=== PATIENT | male | born 1955 | race Caucasian/White ===

== ENCOUNTER 2020-06-06 20:02 | Inpatient (IN) | payer MEDICARE, MEDICAID, SELFPAY ==
[2020-06-06 20:05] VITALS: BP 150/92; PULSE 62; RESP 16; TEMP 36.4; O2SAT 96
--- NOTE | 2020-06-06 20:30 | ED.ABDPAIN ---
HPI - Abdominal Pain General Chief Complaint: Abdominal Pain Stated Complaint: AMB Time Seen by Provider: 06/06/20 20:31 Source: patient, EMS and RN notes reviewed Mode of arrival: EMS Limitations: intoxication History of Present Illness MD elicited complaint: abdominal pain Onset (ago): year(s)
--- NOTE | 2020-06-06 20:45 | ED.GENADULT ---
HPI - General Adult General Chief complaint: Abdominal Pain Stated complaint: AMB Time Seen by Provider: 06/06/20 20:31 Source: patient, EMS and RN notes reviewed Mode of arrival: ambulatory Limitations: no limitations History of Present Illness HPI narrative: patient presents after calling ambulance because he is severely depressed. Said his girlfriend/partner of 20 years in February. 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 The CT . He has been drinking all day. He has a history of alcoholism. He complains about his abdominal pain that he has had for years. Patient states he has seen multiple doctors for his abdominal pain and had multiple tests done. They have never found any answer. He says he is here tonight because he is severely depressed. He denies being suicidal. MD complaint: depression Related Data Home Medications Medication Instructions Recorded Confirmed amlodipine 10 mg PO DAILY 06/06/20 06/06/20 fluoxetine 20 mg PO DAILY 06/06/20 06/06/20 lisinopril 40 mg PO DAILY 06/06/20 06/06/20 lorazepam 1 mg PO BID PRN 06/06/20 06/06/20 omeprazole 20 mg PO DAILY 06/06/20 06/06/20 tamsulosin 0.4 mg PO DAILY 06/06/20 06/06/20 Allergies Allergy/AdvReac Type Severity Reaction Status Date / Time No Known Allergies Allergy Verified 06/06/20 20:41 Review of Systems Constitutional: Constitutional: Reports no additional constitutional complaints, Denies chills and Denies fever(s) Eyes: Eyes: Reports no additional eye complaints ENT: Reports system reviewed and no additional complaints, except as documented Cardiovascular: Cardiovascular: Reports no additional cardiovascular complaints Respiratory: Respiratory: Reports no additional respiratory complaints Gastrointestinal: Gastrointestinal: Reports abdominal pain (Not new), Denies constipation, Denies diarrhea, Denies nausea and Denies vomiting Genitourinary: Genitourinary: Reports no additional male genitourinary complaints Musculoskeletal: Musculoskeletal: Reports no additional musculoskeletal complaints Integumentary/Breasts: Skin/Breast: Reports system reviewed and no additional complaints, except as docu Neurologic: Reports system reviewed and no additional complaints, except as documented Psychiatric: Psychiatric: Reports depression, Denies homicidal ideation and Denies suicidal ideation Endocrine: Endocrine: Reports no additional endocrine complaints Hematologic/Lymphatic: Hematologic/Lymphatic: Reports no additional hematologic/lymphatic complaints PMFSH Past Medical History Medical History (Updated 06/06/20 @ 22:28 by Tommy Paulino MD) Alcoholism BPH (benign prostatic hyperplasia) Depression GERD (gastroesophageal reflux disease) Hepatitis C Hypertension Social History Social History Smoking packs per day: 1 Smoking cigarettes per day: 20.0 Smoking status: Current every day smoker Tobacco type: cigarettes Alcohol intake: current Substance use: never Exam Const: General: healthy appearing and no acute distress Nutritional Appearance: well nourished and thin Orientation/consciousness: patient oriented x3 HENMT: Head: normal to inspection Ears: external ears normal Face and sinus: normal facial exam Eyes: Conjunctivae: conjunctivae normal Pupils: Equal, round and reactive pupils present EOM: EOMs intact bilaterally Neck: Neck: normal visual inspection Chest: Chest palpation & inspection: normal inspection of the chest and abnormal inspection of the chest Resp: Effort & Inspection: normal respiratory effort Auscultation: clear to auscultation bilaterally Cardio: Rate: regular rate Rhythm: regular rhythm GI: GI Palp: Yes Soft to palpation, No Tenderness to palpation present (GI), No Guarding due to palpation present (GI), No Rigid due to palpation and No Rebound tenderness present Auscultation: normal bowel sounds Back/Spine/
[2020-06-06 21:01] LABS: Basophils Absolute Auto 0.08 K/mm3 (0.00-0.10); Eosinophils Absolute Auto 0.16 K/mm3 (0.02-0.50); Eosinophils Percent Auto 1.9 % (1.0-6.0); Hematocrit 34.3 % (37.0-46.0); Hemoglobin 12.6 g/dL (12.4-15.3); Immature Granulocyte Absolute 0.05 K/mm3 (0.00-0.00); Immature Granulocyte Percent A 0.6 % (0.0-0.0); Lymphocytes Absolute Auto 2.22 K/mm3 (1.10-4.50); Lymphocytes Percent Auto 26.5 % (18.0-42.0); Mean Corpuscular HGB Conc 36.7 g/dL (32.0-36.0); Mean Corpuscular Volume 95.3 fL (78.0-102.0); Mean Platelet Volume 8.9 fl (8.7-11.0); Monocytes Absolute Auto 0.87 K/mm3 (0.10-0.90); Monocytes Percent Auto 10.4 % (2.0-11.0); Neutrophils Percent Auto 59.6 % (50.0-70.0); Platelet Count Result 252 K/mm3 (150-420); Red Cell Distribution Width 11.4 % (11.6-14.4); White Blood Count 8.4 K/mm3 (4.8-10.8)
[2020-06-06 21:26] LABS: Alanine Aminotransferase 26 U/L (16-63); Albumin Level 3.4 g/dL (3.4-5.0); Alkaline Phosphatase 39 U/L (46-116); Anion Gap 12 mmol/L (8-16); Aspartate Amino Transferase 25 U/L (15-37); Bilirubin,Total 0.3 mg/dL (0.00-1.00); Blood Urea Nitrogen 6 mg/dL (7-18); Calcium 8.1 mg/dL (8.5-10.1); Carbon Dioxide 22 mmol/L (21-32); Chloride 84 mmol/L (98-108); Estimated Glomerular Filt Rate > 60; Glucose 95 mg/dL (70-99); Lipase 240 U/L (73-393); Osmolality Calculated 243 mOsm/kg (285-295); Potassium 3.2 mmol/L (3.5-5.1); Total Protein 6.3 g/dL (6.4-8.2)
[2020-06-06 21:30] LABS: Ethanol 233 mg/dL (0-6); Sodium 118 mmol/L (136-145)
[2020-06-06 21:31] LABS: CRP < 0.5 mg/dL (0.0-0.9)
[2020-06-06 21:31] LABS: Acetaminophen 10 ug/mL (10-30); Salicylate 4.7 mg/dL (2.8-20.0); Thyroid Stimulating Hormone 1.14 uIU/mL (0.36-3.74)
[2020-06-06] MEDS: PANTOPRAZOLE SODIUM IV 40 MG VIAL IV PUSH (21:43)
[2020-06-06 21:45] LABS: Add Urine Microscopic? NO; Appearance Urine Clear (Clear); Bilirubin Urine Negative (Negative); Blood Urine Negative (Negative); Color Urine Yellow (Yellow); Glucose Urine UA Negative (Negative); Ketones Urine Negative (Negative); Leukocyte Esterase Ur Negative LEU/UL (Negative); Nitrate Urine Negative (Negative); Protein Urine Negative (Negative); Specific Grav Ur <= 1.005 (1.010-1.020); Urobilinogen Urine 0.2 mg/dL (0.2-1.0)
[2020-06-06 21:54] LABS: Amphetamine Screen Urine Negative (Negative); Barbiturate Screen Urine Negative (Negative); Benzodiazepines Screen Urine Negative (Negative); Cannabinoid Screen Urine Negative (Negative); Cocaine Screen Urine Negative (Negative); Methadone Screen Urine Negative (Negative); Opiate Screen Urine Negative (Negative); Phencyclidine Screen Urine Negative (Negative)
[2020-06-06] MEDS: chlordiazePOXIDE (*CRX) 25 MG CAPSULE PO (22:21)
[2020-06-06 22:43] VITALS: BP 134/79; PULSE 60; RESP 16; O2SAT 95
[2020-06-06 22:50] LABS: Ammonia 11 umol/L (11-32)
[2020-06-06 23:00] VITALS: BP 124/70; PULSE 58; RESP 18; TEMP 36; O2SAT 93
--- NOTE | 2020-06-06 23:15 | ADMGEN ---
This patient, Lai An, was admitted to 2nd Floor Room 206-1. Patient oriented to hospital policies and general routines including ID bracelet, bed and alarms, visiting hours, pain management, procedures, bathroom and other care routines, personal items, smoking policy, room service/diet, and visiting hours. Information on how to activate the Rapid Response Team has been discussed. Patient are encouraged to report perceived risks to care and to ask questions if they do not understand what they are told or what they should do. Patient's valuables list completed. Patient arrived to room with NS infusing to site in LAC without difficulty. Patient ambulated to/from bathroom with one assist with unsteady gait. Call light in reach.
[2020-06-07] VITALS: BP 132/68; PULSE 60; RESP 18; TEMP 36.1; O2SAT 94
[2020-06-07 00:54] VITALS: BMI 25.3
[2020-06-07 05:48] LABS: Basophils Percent Auto 1.6 % (0.0-1.0); Eosinophils Absolute Auto 0.19 K/mm3 (0.02-0.50); Eosinophils Percent Auto 3.1 % (1.0-6.0); Hematocrit 37.1 % (37.0-46.0); Hemoglobin 13.5 g/dL (12.4-15.3); Immature Granulocyte Absolute 0.03 K/mm3 (0.00-0.00); Immature Granulocyte Percent A 0.5 % (0.0-0.0); Lymphocytes Absolute Auto 1.66 K/mm3 (1.10-4.50); Lymphocytes Percent Auto 27.3 % (18.0-42.0); Mean Corpuscular HGB Conc 36.4 g/dL (32.0-36.0); Mean Corpuscular Volume 96.1 fL (78.0-102.0); Mean Platelet Volume 8.8 fl (8.7-11.0); Monocytes Absolute Auto 0.68 K/mm3 (0.10-0.90); Monocytes Percent Auto 11.2 % (2.0-11.0); Neutrophils Absolute Auto 3.4 K/mm3 (1.7-7.2); Neutrophils Percent Auto 56.3 % (50.0-70.0); Platelet Count Result 261 K/mm3 (150-420); Red Blood Count 3.86 M/mm3 (4.70-6.10); Red Cell Distribution Width 11.6 % (11.6-14.4); White Blood Count 6.1 K/mm3 (4.8-10.8)
[2020-06-07 06:05] LABS: Anion Gap 10 mmol/L (8-16); Blood Urea Nitrogen 5 mg/dL (7-18); Carbon Dioxide 25 mmol/L (21-32); Chloride 97 mmol/L (98-108); Estimated CRCL calculation 118 ml/min; Estimated Glomerular Filt Rate > 60; Glucose 87 mg/dL (70-99); Osmolality Calculated 270 mOsm/kg (285-295); Potassium 3.6 mmol/L (3.5-5.1); Sodium 132 mmol/L (136-145)
[2020-06-07 06:06] LABS: Ammonia < 10 umol/L (11-32)
[2020-06-07] MEDS: SODIUM CHLORIDE 0.9% IV 1,000 ML 150 ML IV CONT ×2 (06:11)
[2020-06-07 08:00] VITALS: BP 128/72; PULSE 72; RESP 18; TEMP 37.1; O2SAT 96
[2020-06-07] MEDS: amLODIPine BESYLATE 5 MG TABLET 10 MG PO (08:56)
[2020-06-07] MEDS: TAMSULOSIN HCL 0.4 MG CAPSULE PO (08:57)
[2020-06-07] MEDS: lisinopriL 20 MG TABLET 40 MG PO (08:57)
[2020-06-07] MEDS: FLUoxetine HCL 10 MG CAPSULE 20 MG PO (08:57)
[2020-06-07] MEDS: PANTOPRAZOLE 40 MG TABLET PO (08:57)
[2020-06-07] MEDS: LORazepam (*CRX) 1 MG TABLET PO ×2 (09:43→19:59)
[2020-06-07] MEDS: traMADol HCL (*CRX) 50 MG TABLET PO (09:43)
--- NOTE | 2020-06-07 11:14 | PM.IMHP ---
H&P: HPI History of Present Illness Date/Time: 06/07/20 11:14 spoke with patient this morning and according to nursing staff was a little on edge / upset likely from ETOH withdrawal. Patient stated that he wanted his Ativan and tramadol ordered this morning which he takes for anxiety related to alcohol withdrawal and tramadol for chronic back pain. Patient is hard of hearing but was able to understand plan of care regarding his electrolyte imbalance, EtOH use, in case management who discussed outpatient counseling for his EtOH use. Chief complaint: HYPONATREMIA ALCOHOLISM DEPRESSION Narrative: Lai An is a 65 year old male Review of Systems Constitutional: Comments: as per subjective above Cardiovascular: Cardiovascular: Reports no additional cardiovascular complaints, Denies chest pain, Denies chest pain at rest and Denies chest pain with activity Respiratory: Respiratory: Reports no additional respiratory complaints, Denies dyspnea and Denies dyspnea on exertion Gastrointestinal: Gastrointestinal: Reports no additional gastrointestinal complaints Musculoskeletal: Musculoskeletal: Reports no additional musculoskeletal complaints Psychiatric: Psychiatric: Reports no additional psychiatric complaints PMFSH Past Medical History Medical History Alcoholism BPH (benign prostatic hyperplasia) Depression GERD (gastroesophageal reflux disease) Hepatitis C Hypertension Social History Social History Smoking packs per day: 1 Smoking cigarettes per day: 20.0 Years smoked: 50 Smoking pack-years: 50.00 Smoking status: Current every day smoker Tobacco type: cigarettes Second hand tobacco smoke exposure: No Alcohol intake: current Substance use: unknown Gender identity (if verbalized by the patient): Male Sexual Orientation (if Verbalized by the Patient): Straight or Heterosexual Spiritual care concerns: No Meds Home Medications and Allergies Home Medications Medication Instructions Recorded Confirmed Type amlodipine 10 mg PO DAILY 06/06/20 06/06/20 History fluoxetine 20 mg PO DAILY 06/06/20 06/06/20 History lisinopril 40 mg PO DAILY 06/06/20 06/06/20 History lorazepam 1 mg PO BID PRN 06/06/20 06/06/20 History omeprazole 20 mg PO DAILY 06/06/20 06/06/20 History tamsulosin 0.4 mg PO DAILY 06/06/20 06/06/20 History Allergies Allergy/AdvReac Type Severity Reaction Status Date / Time No Known Allergies Allergy Verified 06/06/20 20:41 Vital Signs Vital Signs - 24 hr 06/06/20 20:05 06/06/20 22:43 06/06/20 23:00 Temperature 97.6 F 96.8 F L Pulse Rate 62 60 58 L Respiratory Rate 16 16 18 Blood Pressure 150/92 H 134/79 124/70 Pulse Oximetry 96 95 93 06/07/20 00:00 Temperature 97.0 F L Pulse Rate 60 Respiratory Rate 18 Blood Pressure 132/68 Pulse Oximetry 94 Exam Narrative: Exam Narrative: patient says he is willing to go to outpatient than alcohol counseling Const: General: cooperative and other (a little short at times possibly EtOH withdrawal and/or [place]) Nutritional Appearance: average body habitus Orientation/consciousness: oriented to person, oriented to place and oriented to time Resp: Effort & Inspection: normal respiratory effort Auscultation: clear to auscultation bilaterally Cardio: Rate: regular rate Rhythm: regular rhythm Heart sounds: S1 normal heart sound present and S2 normal heart sound present GI: GI Palp: Yes Soft to palpation Auscultation: normal bowel sounds Neuro: General: oriented to person, oriented to place and oriented to time Cranial nerves: Yes CN's II-XII intact bilaterally (grossly intact little hard of hearing) Speech: normal speech Extrem: General: no pedal edema Psych: Affect: Irritable affect present Attitude: cooperative H&P: Results Labs Labs: Short CBC 06/06/20 06/07/20 Range/Units 20:55 05:43 W
[2020-06-07] MEDS: SODIUM CHLORIDE 0.9% IV 1,000 ML 75 ML IV CONT (12:31)
--- NOTE | 2020-06-07 12:36 | PC.NURSE ---
SBA up from chair and ambulated to bed, fluids infusing now at 75ml an hour, ate well for lunch
--- NOTE | 2020-06-07 15:06 | PC.NURSE ---
1447 changed to ip at this time. aracelis rn
[2020-06-07 16:00] VITALS: PULSE 79; RESP 18; TEMP 36.9; O2SAT 96
[2020-06-07 23:01] VITALS: BP 133/70; PULSE 68; RESP 18; TEMP 36.6; O2SAT 94
[2020-06-08] MEDS: SODIUM CHLORIDE 0.9% IV 1,000 ML 75 ML IV CONT (02:40)
[2020-06-08 05:33] LABS: Hematocrit 34.4 % (37.0-46.0); Hemoglobin 12.2 g/dL (12.4-15.3); Mean Corpuscular HGB Conc 35.5 g/dL (32.0-36.0); Mean Corpuscular Hemoglobin 34.5 pg (27.0-31.0); Mean Corpuscular Volume 97.2 fL (78.0-102.0); Mean Platelet Volume 9.2 fl (8.7-11.0); Platelet Count Result 248 K/mm3 (150-420); Red Blood Count 3.54 M/mm3 (4.70-6.10); Red Cell Distribution Width 11.9 % (11.6-14.4); White Blood Count 8.6 K/mm3 (4.8-10.8)
[2020-06-08 05:44] LABS: Anion Gap 9 mmol/L (8-16); Blood Urea Nitrogen 6 mg/dL (7-18); Calcium 8.3 mg/dL (8.5-10.1); Carbon Dioxide 25 mmol/L (21-32); Chloride 97 mmol/L (98-108); Estimated CRCL calculation 120 ml/min; Estimated Glomerular Filt Rate > 60; Glucose 95 mg/dL (70-99); Magnesium 1.2 mg/dL (1.8-2.4); Osmolality Calculated 269 mOsm/kg (285-295); Potassium 3.3 mmol/L (3.5-5.1); Sodium 131 mmol/L (136-145)
[2020-06-08 08:00] VITALS: BP 155/80; PULSE 70; RESP 16; TEMP 36.6; O2SAT 95
[2020-06-08] MEDS: FLUoxetine HCL 10 MG CAPSULE 20 MG PO (08:21)
[2020-06-08] MEDS: lisinopriL 20 MG TABLET 40 MG PO (08:21)
[2020-06-08] MEDS: amLODIPine BESYLATE 5 MG TABLET 10 MG PO (08:21)
[2020-06-08] MEDS: POTASSIUM CHLORIDE 20 MEQ TABLET 40 MEQ PO (08:21)
[2020-06-08] MEDS: PANTOPRAZOLE 40 MG TABLET PO (08:22)
[2020-06-08] MEDS: TAMSULOSIN HCL 0.4 MG CAPSULE PO (08:22)
[2020-06-08] MEDS: MAGNESIUM SULF 4 GM/WATER100ML 4 GM/100 ML BAG IVPB (08:22)
[2020-06-08 11:28] LABS: Anion Gap 7 mmol/L (8-16); Blood Urea Nitrogen 5 mg/dL (7-18); Calcium 8.6 mg/dL (8.5-10.1); Carbon Dioxide 27 mmol/L (21-32); Chloride 95 mmol/L (98-108); Estimated CRCL calculation 102 ml/min; Estimated Glomerular Filt Rate > 60; Glucose 117 mg/dL (70-99); Magnesium 2.2 mg/dL (1.8-2.4); Osmolality Calculated 266 mOsm/kg (285-295); Potassium 3.8 mmol/L (3.5-5.1); Sodium 129 mmol/L (136-145)
--- NOTE | 2020-06-08 13:17 | PM.DS ---
DS: Admitting Diagnosis Admitting Diagnosis Admitting Diagnosis: HYPONATREMIA ALCOHOLISM DEPRESSION DS: Discharge Diagnosis Discharge Diagnosis (1) Acute hyponatremia: Code(s): E87.1 - Hypo-osmolality and hyponatremia Status: Acute Assessment and Plan: 06/07/2020 patient was started on normal saline 150 per hour and shows shortage, should continue at 75 per hours and recheck chemistry in the morning 06/08/2020 electrolytes have fluctuated but improved, will be discharging patient on 1 g sodium chloride tablets twice a day, also with Mag oxide, and potassium tablets, patient will be needing a close follow-up with his primary care provider, discussed with patient the need to decrease alcohol intake (2) Depression: Qualifiers: Active/Remission status: currently active Depression Type: major depressive disorder Major depression episode severity: severe Major depression recurrence: recurrent Psychotic features: without psychotic features Qualified Code(s): F33.2 - Major depressive disorder, recurrent severe without psychotic features Code(s): F32.9 - Major depressive disorder, single episode, unspecified Status: Acute Assessment and Plan: 06/07/2020 continue fluoxetine, patient agrees to outpatient counseling for his depression and EtOH use 06/08/2020 continue home medication on discharge, patient still plans to do outpatient counseling for his depression but at this time he has decided not to seek counseling for his alcohol use (3) Hypertension: Code(s): I10 - Essential (primary) hypertension Status: Acute Assessment and Plan: 06/07/2020 vital signs stable, room air SpO2 93% or better, will continue to monitor and make adjustments in medication as needed 06/08/2020 vital signs stable, patient on room air, SpO2 94% or better, no adjustments needed to be made on his home medication (4) GERD (gastroesophageal reflux disease): Code(s): K21.9 - Gastro-esophageal reflux disease without esophagitis Status: Acute Assessment and Plan: 06/07/2020 patient takes omeprazole at home medication, Protonix was started and upon admit last night 06/08/2020 will continue his home medication on discharge (5) Alcoholism: Code(s): F10.20 - Alcohol dependence, uncomplicated Status: Acute Assessment and Plan: 06/07/2020 patient appears over this morning, patient agrees to do outpatient counseling, discussed long-term effects of alcohol abuse 06/08/2020 patient was given paperwork for outpatient counseling yesterday he was amicable this today he says he will only go for counseling for his depression. DS: Summary Time Spent with Patient Time attestation: Total time spent providing and/or coordinating discharge services: < [address] Segal this patient. Dr. Seagl was requesting a chest x-ray however patient is refusing at this time. Exam Const: General: cooperative, comfortable, no acute distress, alert, awake and Physically active Nutritional Appearance: average body habitus Eyes: General: appearance normal, both eyes and all related structures Pupils: Equal, round and reactive pupils present Resp: Effort & Inspection: normal respiratory effort Auscultation: clear to auscultation bilaterally Cardio: Jugular venous distension: no JVD Rate: regular rate Rhythm: regular rhythm Heart sounds: S1 normal heart sound present and S2 normal heart sound present GI: GI Palp: Yes Soft to palpation Auscultation: normal bowel sounds Neuro: General: oriented to person, oriented to place and oriented to time Cranial nerves: Yes CN's II-XII intact bilaterally (Grossly intact) Cognition (Neuro): normal cognition Speech: normal speech Extrem: General: full ROM, no pedal edema and other (ambulates without assistance) Psych: Speech and movement: Normal speech and movement present (patient is hard of hearing) Affect: normal affect
--- NOTE | 2020-06-10 14:15 | PC.NURSE ---
Unable to contact for discharge call back.
== END 2020-06-08 13:55 | disposition home or self-care (01) | DRG 641 ==
LOC: CHSED 22:28 → CHS2ND 22:35
PROVIDERS: Nurse Practitioner Family; Admitting Provider Emergency Medicine; Emergency Provider Emergency Medicine; PCP Family Medicine; Visit Provider Emergency Medicine
DX: E87.1 Hypo-osmolality and hyponatremia (principal); F10.20 Alcohol dependence, uncomplicated; B19.20 Unspecified viral hepatitis C without hepatic coma; I10 Essential (primary) hypertension; K21.9 Gastro-esophageal reflux disease without esophagitis; N40.0 Benign prostatic hyperplasia without lower urinary tract symptoms; F32.9 Major depressive disorder, single episode, unspecified
CPT/HCPCS: 36415; 80048; 80053; 80307; 81003; 82140; 83690; 83735; 84443; 85025; 85027; 86140; 96361; 96374; 99284; 99285; A9270; C9113; G0378; J3475; J7030

== ENCOUNTER 2021-01-23 10:59 | Outpatient (CLI) | payer MEDICARE, MEDICAID, SELFPAY ==
--- NOTE | ~2021-01-23 | XR_ITS ---
EXAMINATION: XR ribs LT 2V w CXR 2V INDICATION: Left-sided rib pain TECHNIQUE: PA and lateral views of the chest and 3 views of the left ribs were obtained. COMPARISON: None. FINDINGS: The lungs are free of acute opacities. There is no pleural effusion or pneumothorax. The ca rdiomediastinal silhouette is normal. Calcified subcarinal lymph node is consistent with old granulom atous disease. No displaced rib fracture is identified. There is mild osteoarthritis of the shoulders . Partially imaged changes of cervical and lumbar fusion are noted. There is severe lumbar spondylosi s. IMPRESSION: 1. No acute cardiopulmonary abnormality or evidence of displaced rib fracture. Reviewed, dictated and finalized at location B.
== END 2021-01-23 11:00 | disposition home or self-care (01) ==
PROVIDERS: PCP Family Medicine; Visit Provider Nurse Practitioner Psychiatric/Mental Health
DX: R07.81 Pleurodynia (principal)
CPT/HCPCS: 71046; 71100

== ENCOUNTER 2021-03-15 11:51 | Outpatient (CLI) | payer MEDICARE, SELFPAY ==
[2021-03-15 12:32] LABS: SARS-CoV-2 Ag Negative (Negative)
== END 2021-03-15 11:52 | disposition home or self-care (01) ==
LOC: CHSLAB 11:54
PROVIDERS: PCP Family Medicine; Visit Provider Family Medicine
DX: Z20.822 Contact with and (suspected) exposure to COVID-19 (principal)
CPT/HCPCS: 87426; C9803

== ENCOUNTER 2021-10-04 07:29 | Outpatient (CLI) | payer MEDICARE, SELFPAY ==
[2021-10-04 11:08] LABS: SARS-CoV-2 RNA PCR Negative (Negative)
== END 2021-10-04 07:30 | disposition home or self-care (01) ==
LOC: CHSLAB 07:32
PROVIDERS: PCP Family Medicine; Visit Provider Internal Medicine Gastroenterology
DX: Z01.818 Encounter for other preprocedural examination (principal); Z20.822 Contact with and (suspected) exposure to COVID-19
CPT/HCPCS: C9803; U0003; U0005

== ENCOUNTER 2022-06-04 12:23 | Outpatient (CLI) | payer MEDICARE, MEDICAID, SELFPAY ==
--- NOTE | ~2022-06-04 | XR_ITS ---
EXAMINATION: XR hip RT min 2V DATE: 06/04/2022 12:55 INDICATION: Right hip pain after fall TECHNIQUE: Two views of right hip were obtained. COMPARISON: None. FINDINGS: Bone alignment is normal. There is no fracture. There is mild osteoarthritis of the right h ip. Calcified atherosclerosis is noted. IMPRESSION: 1. No acute osseous abnormality. Reviewed, dictated and finalized at location B. TUTOR
--- NOTE | ~2022-06-04 | XR_ITS ---
EXAMINATION: XR femur RT min 2V INDICATION: Right femur pain TECHNIQUE: Two views of the right femur are obtained on four radiographs. COMPARISON: None available FINDINGS: Bone alignment is normal. There is no fracture. Calcified atherosclerosis is noted. There i s mild osteoarthritis of the hip and knee. IMPRESSION: 1. No acute osseous abnormality. Reviewed, dictated and finalized at location B. ERSMITH APPRENTICE
== END 2022-06-04 12:24 | disposition home or self-care (01) ==
LOC: CHSIMG 12:26
PROVIDERS: PCP Family Medicine; Visit Provider Registered Nurse
DX: M79.604 Pain in right leg (principal)
CPT/HCPCS: 73502; 73552